=== PATIENT | female | born 2000 | race Two or more races ===

== ENCOUNTER 2018-10-26 09:55 | Observation (INO) | payer MEDICAID, OTHER ==
[2018-10-26] MEDS ORDERED: PREN-96 PO (10:17)
[2018-10-26] MEDS ORDERED: FERR-20 PO (10:17)
== END 2018-10-26 11:35 | disposition home or self-care (01) | DRG 566 ==
LOC: LDRP 09:55
PROVIDERS: ADMIT Specialist; ATTEND Specialist
DX: O48.0 Post-term pregnancy (principal); O26.893 Other specified pregnancy related conditions, third trimester; F17.200 Nicotine dependence, unspecified, uncomplicated; N89.8 Other specified noninflammatory disorders of vagina; O99.333 Smoking (tobacco) complicating pregnancy, third trimester; Z3A.40 40 weeks gestation of pregnancy
CPT/HCPCS: 59025; 76818; 81002; G0378

== ENCOUNTER 2018-10-27 03:15 | Inpatient (IN) | payer MEDICAID ==
[~2018-10-27] VITALS: Ht 160 cm; Wt 79.4 kg
[~2018-10-27 03:15] MED LIST: FERR-20 PO; PREN-96 PO
[2018-10-27] MEDS ORDERED: LACT. RINGERS/OXYTOCIN 20UNITS 1,000 ML IV SCH ×2 (03:43→11:40)
[2018-10-27] MEDS ORDERED: PHISODERM TOP SOLN 240ML BTL TOP PRN (03:45)
[2018-10-27] MEDS ORDERED: LIDOCAINE 2%HCL (LOCAL ANESTH.) INJ 20ML MDV ID PRN (03:45)
[2018-10-27] MEDS ORDERED: DERMOPLAST 60ML BOTTLE TOP PRN (03:45)
[2018-10-27] MEDS ORDERED: WITCH HAZEL-GLYCERIN PAD TOP PRN (03:45)
[2018-10-27] MEDS: LACTATED RINGER'S 1,000 ML IV SCH ×3 (03:57→14:00)
[2018-10-27 04:23] LABS: Basophils # (auto) 0 uL; Basophils % (auto) 0.6 % (0.0-2.0); Eosinophils # (auto) 0.1 uL; Eosinophils % (auto) 1.5 % (0.0-7.0); Hemoglobin 13.2 g/dL (12.2-16.2); Lymphocytes % (auto) 29.4 % (10.0-50.0); Mean Corpuscular Hemoglobin 31.3 pg (28.0-32.0); Mean Corpuscular Hgb Conc. 33.8 g/dL (32.0-36.0); Mean Corpuscular Volume 92.7 fL (80.0-100.0); Monocytes # (auto) 0.4 uL; Monocytes % (auto) 6.1 % (0.0-12.0); Neutrophils # (auto) 4.2 uL; Neutrophils % (auto) 62.4 % (37.0-80.0); Nucleated Red Blood Cells % 0.1 %; Platelet Count (auto) 177 10^3/uL (140-450); Red Cell Distribution Width 13.9 % (11.8-14.3); White Blood Cell 6.7 10^3/uL (4.4-10.8)
[2018-10-27 04:40] LABS: Albumin 2.7 g/dL (3.4-5.0); Calcium 7.9 mg/dL (8.5-10.1); Potassium 3.3 mmol/L (3.5-5.1)
[2018-10-27 04:44] LABS: BUN/Creatinine Ratio 7.3; INR 0.88 (0.9-1.15); Partial Thromboplastin Time 28.9 sec (23.78-33.04); Prothrombin Time 9.5 sec (9.27-12.13)
[2018-10-27 04:45] LABS: Bilirubin, Total 0.3 mg/dL (0.2-1.0); Total Protein 6.2 g/dL (6.4-8.2)
[2018-10-27 05:08] LABS: Urine Amorphous Crystal MOD /hpf (None Seen); Urine Bacteria FEW /hpf (None Seen); Urine Blood TRACE /uL (Negative); Urine Specific Gravity 1.008 (1.001-1.035); Urine WBC None Seen /hpf (0 - 5)
[2018-10-27] MEDS ORDERED: POTASSIUM CHL 20 Meq TABLET PO ONE (06:30)
--- NOTE | 2018-10-27 08:32 | NUR ---
MANUAL FROM LAB CALLED AND STATES UNABLE TO PROCESS URINE SAMPLE .PLEASE SEND NEW URINE SAMPLE FOR UDS.
[2018-10-27 08:44] LABS: Alcohol, Urine < 3.0 mg/dL (0-5); Amphetamine Screen, Urine NEGATIVE (NEGATIVE); Cannabinoid Screen, Urine NEGATIVE (NEGATIVE); Cocaine Screen, Urine NEGATIVE (NEGATIVE); Opiate Scree,Urine NEGATIVE (NEGATIVE); Phencyclidine Screen, Urine NEGATIVE (NEGATIVE)
[2018-10-27 08:51] LABS: Barbiturate Scree,Urine NEGATIVE (NEGATIVE); Benzodiazephine Screen, Urine NEGATIVE (NEGATIVE)
[2018-10-27] MEDS ORDERED: PROMETHAZINE HCL 25 MG/ML 1ML IM ONE (11:45)
[2018-10-27] MEDS ORDERED: NALBUPHINE HCL 10 MG/1ml INJECTION IV PRN (11:45)
[2018-10-27] MEDS ORDERED: LACTATED RINGER'S 1,000 ML IV ONE (11:53)
[2018-10-27] MEDS ORDERED: fentaNYL W ROPIVACAINE 150 ML EPI SCH (12:00)
[2018-10-27] MEDS ORDERED: NALOXONE HCL 0.4 MG/ML VIAL IV ONE (12:00)
[2018-10-27] MEDS ORDERED: ePHEDrine SULFATE 50 MG/ML AMP IV ONE (12:00)
[2018-10-27] MEDS ORDERED: LIDOCAINE HCL 2 %PF INJ 10ML AMP IJ ONE (12:00)
[2018-10-27] MEDS ORDERED: PROMETHAZINE HCL 25 MG/ML 1ML IV PRN (12:15)
--- NOTE | 2018-10-27 20:05 | NUR ---
This RN assisted pt out of bed to bathroom. Pt ambulated with steady gate to bathroom, denied dizziness. Void 900 cc's clear yellow urine. Pt passed one clot the size of a plum. Fundal massage provided while pt sitting on toilet. Education provided in depth regarding pericare, ice tucks spray. Pt verbalized understanding. Pt independently ambulated to her bed. Fundal massage and assessment of jerrod area. Minimal swelling and redness, fundal massage provided again. Bleeding light and no clots passed. See Post flowsheet for continued post care in [facility].
[2018-10-27 20:30] VITALS: BP_SYST 102; BP_SYST 110; BP_DIAS 65; BP_DIAS 68
[2018-10-27] MEDS ORDERED: DOCUSATE SOD 100 MG CAP PO ONE (20:47)
[2018-10-27] MEDS: IBUPROFEN 600 MG TAB PO PRN (20:50)
[2018-10-27] MEDS: CEPHALEXIN 250 MG CAP PO SCH (20:51)
[2018-10-27] MEDS: DOCUSATE CALCIUM 240 MG CAP PO SCH (20:51)
[2018-10-27 21:00] VITALS: BP 99/58
[2018-10-27 21:30] VITALS: BP 98/56
[2018-10-27 22:52] VITALS: BP 101/59
[2018-10-28 02:46] VITALS: BP 92/50
[2018-10-28] MEDS ORDERED: DOCUSATE SOD 100 MG CAP PO ONE (05:27)
[2018-10-28] MEDS: CEPHALEXIN 250 MG CAP PO SCH ×3 (05:32→21:15)
[2018-10-28] MEDS: IBUPROFEN 600 MG TAB PO PRN (05:32)
[2018-10-28] MEDS: DOCUSATE CALCIUM 240 MG CAP PO SCH (05:33)
[2018-10-28 07:20] VITALS: BP 87/51
[2018-10-28 08:07] LABS: RPR Non Reactive (Non Reactive)
--- NOTE | 2018-10-28 10:20 | NUR ---
IV removal IV DC'd with sterile technique, catheter fully intact. Pressure dressing applied to site. Patient tolerated procedure well.
[2018-10-28 11:00] VITALS: BP 102/64
--- NOTE | 2018-10-28 13:50 | NUR ---
PT REPORT RECEIVED FROM Sandy ORDONEZ RN ON STABLE PATIENT, NO S/S OF DISTRESS OR SOB NOTED. ASSUMING CARE.
--- NOTE | 2018-10-28 13:52 | NUR ---
Teaching: Rounded on patient and re-educated patient on , feeding cues and importance of feeding infant every 2-3 hours. Assessed . No s/s of distress or sob noted. Reviewed information in [facility] booklet with patient. Discussed different positions, proper latch, and baby-led and patient returned demonstration. Provided information of medication side effects related to . All questions and concerns addressed at this time. Patient verbalized understanding of information. Will continue to monitor.
[2018-10-28 15:05] VITALS: BP 117/67
[2018-10-28 19:00] VITALS: BP 101/63
--- NOTE | 2018-10-28 19:30 | NUR ---
LEFT EYE During assessment, this RN sees a reddened area in pt's sclera of the left eye. Per pt, it appeared after of the .
[2018-10-28 23:30] VITALS: BP 114/59
[2018-10-29 03:00] VITALS: BP 104/57
[2018-10-29] MEDS: CEPHALEXIN 250 MG CAP PO SCH ×2 (03:22→10:57)
[2018-10-29 06:43] VITALS: BP 116/70
[2018-10-29] MEDS ORDERED: TUBERCULIN PPD 5 UNIT/0.1 ML ID ONE (08:30)
--- NOTE | 2018-10-29 09:03 | NUR ---
Discharge: Discharge instructions given as ordered. Pt encouraged to follow up with [facility] [employer] as instructed. All questions and concerns addressed. Patient verbalized understanding. Medication reconciliation completed and copy given to patient. Patient encouraged to prepare to depart unit.
--- NOTE | 2018-10-29 10:55 | NUR ---
Discharge: Patient taken to vehicle via wheelchair with all personal belongings, accompanied by staff and family member. No distress noted at time of departure, no adverse changes in status since initial assessment.
[2018-10-29] MEDS: DOCUSATE CALCIUM 240 MG CAP PO SCH (10:57)
== END 2018-10-29 10:45 | disposition home or self-care (01) | DRG 542 ==
LOC: LDRP 03:15 → OBSVTOIN 03:15 → LDRP 14:02
PROVIDERS: ADMIT Specialist; ATTEND Specialist
PROC: 10D07Z6 Extraction of Products of Conception, Vacuum, Via Natural or Artificial Opening (ICD-10-PCS; principal; 2018-10-27)
PROC: 0DQR0ZZ Repair Anal Sphincter, Open Approach (ICD-10-PCS; 2018-10-27)
PROC: 0W8NXZZ Division of Female Perineum, External Approach (ICD-10-PCS; 2018-10-27)
PROC: 3E0P7VZ Introduction of Hormone into Female Reproductive, Via Natural or Artificial Opening (ICD-10-PCS; 2018-10-27)
DX: O69.81X0 Labor and delivery complicated by cord around neck, without compression, not applicable or unspecified (principal); O70.20 Third degree perineal laceration during delivery, unspecified; O42.92 Full-term premature rupture of membranes, unspecified as to length of time between rupture and onset of labor; O77.0 Labor and delivery complicated by meconium in amniotic fluid; Z37.0 Single live birth; Z3A.40 40 weeks gestation of pregnancy
CPT/HCPCS: 36415; 59025; 59409; 62282; 80053; 80307; 81001; 85025; 85610; 85730; 86592; 86850; 86900; 86901; 94762; 96361; 96365; 96366; 96374; A6257; G0378; J2590; J3010

== ENCOUNTER 2019-05-19 18:24 | Emergency (ER) | payer MEDICAID ==
[~2019-05-19] VITALS: Ht 160 cm; Wt 72.6 kg
[2019-05-19] MEDS ORDERED: KETOROLAC TROMETH 60MG/2ML VIAL IM ONE (20:45)
[2019-05-19 20:50] VITALS: BP 108/78
== END 2019-05-19 21:27 | disposition home or self-care (01) ==
LOC: ER 18:24
DX: S82.142A Displaced bicondylar fracture of left tibia, initial encounter for closed fracture (principal); Z79.899 Other long term (current) drug therapy; W01.198A Fall on same level from slipping, tripping and stumbling with subsequent striking against other object, initial encounter; Y93.89 Activity, other specified; Y99.8 Other external cause status; Y92.481 Parking lot as the place of occurrence of the external cause
CPT/HCPCS: 29505; 73562; 96372; 99283; J1885

== ENCOUNTER 2022-03-14 22:02 | Emergency (ER) | payer MEDICAID ==
[~2022-03-14] VITALS: Ht 160 cm; Wt 86.5 kg
[2022-03-14 23:41] LABS: Basophils # (auto) 0 10 ^3/uL (0-0.2); Basophils % (auto) 0.6 % (0.0-2.0); Eosinophils # (auto) 0.2 10 ^3/uL (0-0.8); Eosinophils % (auto) 3.5 % (0.0-7.0); Hematocrit 38.9 % (36.0-46.0); Hemoglobin 12.4 g/dL (12.2-16.2); Lymphocytes # (auto) 2.6 10 ^3/uL (0.4-5.4); Mean Corpuscular Hemoglobin 27.8 pg (28.0-32.0); Mean Corpuscular Hgb Conc. 31.9 g/dL (32.0-36.0); Mean Corpuscular Volume 87.2 fL (80.0-100.0); Monocytes # (auto) 0.4 10 ^3/uL (0-1.3); Monocytes % (auto) 6.6 % (0.0-12.0); Neutrophils % (auto) 48.3 % (37.0-80.0); Nucleated Red Blood Cells % 0.1 %; Red Blood Cells 4.46 10^6/uL (4.0-5.20); Red Cell Distribution Width 14.2 % (11.8-14.3); White Blood Cell 6.3 10^3/uL (4.4-10.8)
[2022-03-14 23:54] LABS: Potassium 3.7 mmol/L (3.5-5.1)
[2022-03-14 23:58] LABS: Urine Bacteria FEW /hpf (None Seen); Urine Blood Negative /uL (Negative); Urine Specific Gravity 1.018 (1.001-1.035); Urine WBC 2 /hpf (0 - 5)
[2022-03-14 23:59] LABS: Calcium 8.9 mg/dL (8.5-10.1)
[2022-03-15 00:02] LABS: BUN/Creatinine Ratio 16.1
[2022-03-15 00:08] LABS: Bilirubin, Total 0.2 mg/dL (0.2-1.0); Total Protein 7.9 g/dL (6.4-8.2)
[2022-03-15 05:00] VITALS: BP 118/61
== END 2022-03-15 05:35 | disposition home or self-care (01) ==
LOC: ER 22:02
DX: R07.89 Other chest pain (principal); Z79.899 Other long term (current) drug therapy
CPT/HCPCS: 36415; 71045; 80053; 81001; 84484; 85025; 93005